=== PATIENT | female | born 1950 | race Caucasian/White ===

== ENCOUNTER → 2019-08-22 | Outpatient (CLI) | payer OTHER | LOC: CAT 14:54 | DX: Z13.6 Encounter for screening for cardiovascular disorders (principal); E78.00 Pure hypercholesterolemia, unspecified; I25.10 Atherosclerotic heart disease of native coronary artery without angina pectoris ==

== ENCOUNTER → 2019-10-06 | Outpatient (CLI) | payer OTHER ==
[~2019-10-06] VITALS: Ht 154.9 cm; Wt 65.8 kg
[~2019-10-06] MED LIST: ALTACE2.5 MG PO; ASA81BEC PO; FISH OIL 1,001000 M3 PO; GLUCOSAMINE-CH1 EACH PO; LEVO-T25 MCG PO; MAALOX ADVANCE1 EACH PO; MOBIC7.5 MG PO; NORVASC 2.5 MG2.5 M1 PO; THERA M PLUS T1 EAC2 PO; VITAMIN C500 M2 PO
[2019-10-06 08:37] VITALS: BP 143/74
[2019-10-06 08:56] LABS: HEMATOCRIT 40.8 % (37.0-47.0); HEMOGLOBIN 13.7 gm/dL (12.0-15.0); MCH 31.4 pg (26.0-34.0); MCHC 33.4 g/dL (28.0-37.0); MCV 93.8 fL (80.0-100.0); RBC 4.36 mil/uL (4.20-5.00); WBC 5.5 thou/uL (4.0-11.0)
[2019-10-06 09:10] LABS: ANION GAP 7 mmol/L (7-16); BUN 19 mg/dL (7-18); CALCIUM 9.2 mg/dL (8.5-10.1); CHLORIDE 106 mmol/L (98-107); CO2 27 mmol/L (21-32); CREATININE 0.8 mg/dL (0.6-1.0); GLUCOSE 96 mg/dL (74-106); POTASSIUM 3.5 mmol/L (3.5-5.1); SODIUM 140 mmol/L (136-145)
[2019-10-06 09:17] LABS: CHOLESTEROL 294 mg/dL (<200); HDL CHOLESTEROL 73 mg/dL (>40); LDL CHOLESTEROL 213 mg/dL (<100); TRIGLYCERIDE 40 mg/dL (<150); VLDL 8 mg/dL (<40)
--- NOTE | 2019-10-06 10:24 | EKG ---
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 DONALDSON : 1950 Requested By: Kumar Wilkerson Order Number: [id number] MD: Edvin Flaherty Measurements Intervals [place] Rate: 55 P: -1 ME: 149 QRS: -32 QRSD: 116 T: 70 QT: 486 QTc: 465 Interpretive Statements Sinus bradycardia Nonspecific ST and T wave abnormality No previous ECG available for comparison Electronically Signed On 10-06-2019 10:23:43 INSURANCE ADVISOR by Edvin Flaherty [email or web address] <ELECTRONICALLY SIGNED> By: Edvin Flaherty MD, [facility] 10/06/19 1023 0837 6 Edvin Flaherty MD, FACC /EPI
--- NOTE | 2019-10-06 14:17 | CATHLAB ---
[facility] [place] [address] INVASIVE PROCEDURE REPORT Name: JOHNATHON DE LA CRUZ BALLARD Room #: REG [facility]#: [id number] Admission: 10/06/19 Attend Phys: Kumar Wilkerson MD Discharge: Date of : 50 Report #: [id number] THIS REPORT FOR: //name// APPROVED REPORT Study performed: 10/06/2019 08:35:24 Patient Details Patient Status: Out-Patient Room #: The patient is a 69 year-old female Event Personnel Kumar Wilkerson Edgerman, Destini Wesley RN RN, Carla Glass RTNathan Mcgrath David Monitor Procedures Performed Left Heart Cath w/or w/o Coronaries [id number] [facility] Indication Dyspnea, Positive stress test Risk Factors Hypercholesterolemia, Coronary Artery DiseaseHypertension Procedure Narrative The Right Groin^ was infiltrated with 1% Lidocaine subcutaneous anesthesia. A PINNACLE 4FR Sheath #[id number] sheath was inserted into the RFA^. Coronary angiography was performed using coronary diagnostic catheters. The right coronary system was accessed and visualized with a JR4 catheter. The left coronary system was accessed and visualized with a JL4 catheter. The left ventricle was accessed and visualized with a PIGTAIL catheter. Left ventricular/Aortic Valve gradient assessed via catheter pullback. Left ventriculogram was performed in 30 degree projection. Hemostasis was obtained with manual pressure following sheath removal without any complications. The patient tolerated the procedure well and there were no complications associated with the procedure. There was no hematoma. Intraoperative Conscious Sedation Sedation start time: Case end Time: 10.04 Fentanyl 50 mcg Versed 1 mg Fluoro Time: 1.30 minutes Dose: DAP 1567.00 cGycm2 [address] [address] INVASIVE PROCEDURE REPORT Name: DOROTHYJOHNATHON BALLARD Room #: REG [facility]#: [id number] Admission: 10/06/19 Attend Phys: Kumar Wilkerson MD Discharge: Date of : 50 Report #: [id number] Contrast Type and Amount: Omnipaque 85 ml Coronary Angiography The patient's coronary anatomy is right dominant. Diagnostic Cath Left Main The left main artery is a large-caliber vessel, patent with no flow-limiting lesions. LAD The LAD is a moderate size caliber vessel, traversing the anterior wall and terminating at the apex. There is mild to moderate diffuse disease in the mid segment, 30-40%. Diagonal 1 The first diagonal artery is a moderate size caliber vessel, bifurcates into 2 branches. There is mild disease in the proximal segment. Circumflex This is a moderate size caliber vessel, with mild disease proximally. OM1 There is one obtuse marginal artery, patent with mild disease in the proximal segment. Right Coronary This is a dominant vessel with mild disease proximally. R PDA This is a patent vessel with mild disease proximally. RPLV This is a patent vessel, with no flow-limiting lesions. Left Ventriculography The left ventricle is normal in size with normal contractility. The left ventricular ejection fraction is estimated to be 50%. Hemodynamics The aortic pressure is 175/74 mmHg with a mean of 101 mmHg. The left ventricular pressure is 137/16 mmHg with a mean of mmHg. The left ventricular end diastolic pressure is 22 mmHg. There was no gradient across the aortic valve upon pullback. Pullback from the left ventricle to the aorta revealed no gradient across the aortic valve. Conclusion 1. There is mild to moderate disease in the LAD and RCA. 2. There is normal LV systolic function. 3. Recommend aggressive risk factor management. <ELECTRONICALLY SIGNED> By: Kumar Wilkerson MD 10/06/19 1416 1416 1416 Kumar Wilkerson MD /INF
== END | disposition home or self-care (01) ==
LOC: CATH 07:50
PROVIDERS: Internal Medicine Cardiovascular Disease
DX: R94.39 Abnormal result of other cardiovascular function study (principal); I25.10 Atherosclerotic heart disease of native coronary artery without angina pectoris; R06.00 Dyspnea, unspecified; I10 Essential (primary) hypertension; E78.00 Pure hypercholesterolemia, unspecified; K21.9 Gastro-esophageal reflux disease without esophagitis; E78.5 Hyperlipidemia, unspecified; Z98.890 Other specified postprocedural states; Z79.899 Other long term (current) drug therapy; Z79.82 Long term (current) use of aspirin; Z88.0 Allergy status to penicillin